=== PATIENT | female | born 1955 | race Caucasian/White ===

== ENCOUNTER 2018-02-24 09:33 | Outpatient (CLI) | payer BC ==
[2018-02-24 10:45] LABS: Hemoglobin 13.7 g/dL (12.0-16.0); Mean Corpuscular HGB CONC 33.5 g/dL (32.0-36.0); Mean Corpuscular Hemoglobin 28.5 pg (27.0-31.0); Mean Platelet Volume 7.1 fL (7.4-10.4); Platelet Count 192 thou/uL (130-400); RBC Distribution Width 12.7 % (11.5-14.5); Red Blood Cell (RBC) Count 4.82 mill/uL (4.20-5.40); White Blood Cell (WBC) Count 6.7 thou/uL (4.8-10.8)
[2018-02-24 10:51] LABS: PTT 33.4 SEC (22.9-36.1); Prothrombin Time 13.7 SEC (12.0-14.7)
[2018-02-24 11:05] LABS: ALT (SGPT) 26 U/L (8-55); AST (SGOT) 16 U/L (5-34); Albumin 4.3 g/dL (3.4-4.8); Alkaline Phosphatase 84 U/L (40-150); Anion Gap 9 mmol/L (10-20); BUN (Urea Nitrogen) 10 mg/dL (9.8-20.1); Bilirubin, Total 0.6 mg/dL (0.2-1.2); Calc. Creatinine Clearance 0 mL/min (70-130); Calcium 9.9 mg/dL (7.8-10.44); Carbon Dioxide 25 mmol/L (23-31); Chloride 109 mmol/L (98-107); Estimated GFR-MDRD 73; Globulin 2.6 g/dL (2.4-3.5); Glucose 167 mg/dL (80-115); Potassium 4.3 mmol/L (3.5-5.1); Protein, Total 6.9 g/dL (6.0-8.3); Sodium 139 mmol/L (136-145)
--- NOTE | 2018-02-24 16:45 | EKG ---
Test Reason : Blood Pressure : / mmHG Vent. Rate : 066 BPM Atrial Rate : 066 BPM P-R Int : 134 ms QRS Dur : 090 ms QT Int : 362 ms P-R-T Axes : -15 032 089 degrees QTc Int : 379 ms Normal sinus rhythm Nonspecific T wave abnormality Abnormal ECG Confirmed by ERICKA SAINZ ([id number]) on 02/24/2018 4:44:58 PM Referred By: MANAN Confirmed By:ERICKA SAINZ
== END 2018-02-24 09:34 | disposition home or self-care (01) ==
LOC: LABBT 09:33
PROVIDERS: ATTEND Internal Medicine Cardiovascular Disease
DX: Z01.818 Encounter for other preprocedural examination (principal); I25.10 Atherosclerotic heart disease of native coronary artery without angina pectoris
CPT/HCPCS: 80053; 85027; 85610; 85730; 93005; 93010

== ENCOUNTER 2018-02-27 05:47 | Day surgery (SDC) | payer BC ==
[2018-02-24 09:59] VITALS: BMI 31.2
[2018-02-27] MEDS ORDERED: Verapamil 5 MG/2 ML VIAL ONE (06:57)
[2018-02-27] MEDS ORDERED: Heparin 10,000 UNITS/1 ML VIAL ONE (06:57)
[2018-02-27] MEDS ORDERED: Nitroglycerin 100MG/250ML BOT 250 ML ONE (06:58)
[2018-02-27] MEDS ORDERED: Lidocaine 1% (PF) 30 ML VIAL ONE (07:04)
[2018-02-27] MEDS ORDERED: Midazolam HCl 2 mg/2 ml Vial ONE (08:16)
[2018-02-27] MEDS ORDERED: Fentanyl 100 MCG/2 ML VIAL ONE (08:16)
--- NOTE | 2018-02-28 04:30 | CON ---
DATE OF CONSULTATION: 02/27/2018 REQUESTING PHYSICIAN: Cr Abreu M.D. PRIMARY CARE PHYSICIAN: Soraya Hagan M.D. CHIEF COMPLAINT: Shortness of breath. HISTORY OF PRESENT ILLNESS: The patient is a 62-year-old diabetic woman with a family history of pre mature coronary artery disease who at about age 48 had a myocardial infarction. At that time, she un derwent stenting of her LAD and has done reasonably well since then. Manifestation of her [place], she de scribes it was that she bent over while taking a shower and became very dizzy and lightheaded. When her arrived, he commented that she looked pale as a ghost and took her to the hospital. She has had no recurrent symptoms even vaguely resembling that since then. However, for about the past y ear, she seems to be getting tired more easily and gets winded when exerting herself more easily. Th ere is not a distinct pattern to it, but in speaking with her , he feels like he has been able to notice a distinct change in her exercise tolerance. At a recent checkup, she volunteered this sh ortness of breath, which prompted stress testing, which showed a large area of apical ischemia. Card iac catheterization today demonstrated left dominant system with some modest circumflex system diseas e, but a subtotal lesion in her mid LAD. PAST MEDICAL AND SURGICAL HISTORY: Significant for coronary artery disease, hypertension, diabetes, and esophageal stricture was dilated about a year ago. About 4 years ago, she underwent segmental ma stectomy and radiation therapy to the left breast. HOME MEDICATIONS: Metoprolol succinate 50 mg a day, losartan 50 mg at bedtime, Januvia 50 mg a day, glipizide 10 mg b.i.d., Lipitor 40 mg at bedtime, and anastrozole one tablet a day. ALLERGIES: She denies any medical allergies, but describes an intolerance to METFORMIN causing diarr hea. SOCIAL HISTORY: She does not smoke. FAMILY HISTORY: Significant for her mother having undergone carotid endarterectomy and then underwen t coronary artery bypass grafting following a myocardial infarction. She describes her father as hav ing severe lung disease that led to heart problems. She had a brother who of an [place] at age 50. REVIEW OF SYSTEMS: Negative for any orthopnea or PND. Negative for any edema. Positive for some oc casional chest heaviness. Negative for any transient high speech, facial or extremity symptoms to land ggest TIAs. Negative for any claudication. PHYSICAL EXAMINATION: GENERAL: She is a moderately obese woman, in no distress. VITAL SIGNS: Height is 5 feet 5 inches, weight 192 pounds, heart rate is 80, blood pressure 124/60. HEENT: She has no xanthelasma. NECK: No JVD, no carotid bruits. CHEST: Clear to auscultation. CARDIOVASCULAR: She has regular rate and rhythm without any obvious murmur or gallop. SKIN: She has a well-healed surgical scar on the inner lower quadrant of her left breast with a very small amount of residual radiation burn type scarring. The remainder of the skin of her chest wall appears normal in color and texture. EXTREMITIES: She has palpable radial, dorsalis pedis, and posterior tibial pulses. No clubbing, cya nosis, or edema. NEUROLOGIC: Grossly nonfocal. LABORATORY DATA: Her white count is 6.7, hemoglobin 13.7, hematocrit 40.9, platelets 192,000. PT 13 .7, INR 1.0, PTT 33.4. Sodium 139, potassium 4.3, chloride 109, CO2 of 25, glucose 167, BUN 10, crea tinine 0.97, calcium 9.9, bilirubin 0.6, alkaline phosphatase 84, AST 16, ALT 26, protein 6.9, and al bumin 4.3. Her echocardiogram showed an LVEF of 60%. Her cardiac catheterization showed left domina nt system with proximal LAD stent and a subtotal lesion in the mid LAD with slow filling. Beyond maria r t, the LAD appears to be somewhat underfilled but goes up to the apex. She has modest lesion in the ostium of a large OM1 followed by a small OM2 and a large OM3. She has about 60%-70% lesion in the c ircumflex leading to the PDA, she is a nondominant right. IMPRESSION AND RECOMMENDATION: Very high-grade LAD disease with more modest disease in the obtuse ma rginal and the mid circumflex PDA while she may not fit into the category of a patient for whom surgi adore revascularization can clearly offer a survival advantage and she should be a fairly low-risk skye ent and would be far easier I think to successfully manage surgically than medically or percutaneousl y. Once she and her have had a chance to make arrangements for a time-off from work and some one to care for an elderly parent in their absence, we will arrange for coronary artery bypass grafti ng at mutual convenience.
== END 2018-02-27 14:06 | disposition home or self-care (01) ==
LOC: CCL 05:47
PROVIDERS: ATTEND Internal Medicine Cardiovascular Disease
PROC: 4A023N8 Measurement of Cardiac Sampling and Pressure, Bilateral, Percutaneous Approach (ICD-10-PCS; principal; 2018-02-27)
PROC: B2111ZZ Fluoroscopy of Multiple Coronary Arteries using Low Osmolar Contrast (ICD-10-PCS; principal; 2018-02-27)
DX: I25.10 Atherosclerotic heart disease of native coronary artery without angina pectoris (principal); I10 Essential (primary) hypertension; E78.5 Hyperlipidemia, unspecified; K21.9 Gastro-esophageal reflux disease without esophagitis; Z79.84 Long term (current) use of oral hypoglycemic drugs; Z79.899 Other long term (current) drug therapy
CPT/HCPCS: 36416; 85347; 93454; 99152; 99153; C1769; J1644; J2001; J2250; J3010

== ENCOUNTER 2018-03-06 15:30 | Inpatient (IN) | payer BC, MEDICARE ==
[2018-03-13] MEDS ORDERED: CEFAZOLIN/Water 2 GM/20 ML SYRINGE ONE (06:02)
[2018-03-13] MEDS ORDERED: Fentanyl 100 MCG/2 ML VIAL ONE ×3 (06:31→11:37)
[2018-03-13] MEDS ORDERED: Fentanyl 250 MCG/5 ML VIAL ONE (06:31)
[2018-03-13] MEDS ORDERED: Midazolam HCl 5 mg/5 ml Vial ONE (06:31)
[2018-03-13] MEDS ORDERED: Albumin 5% 0 ML ONE (06:33)
[2018-03-13] MEDS ORDERED: Heparin 5,000 UNITS/ML VIAL ONE ×2 (06:59→12:48)
[2018-03-13] MEDS ORDERED: Midazolam HCl 2 mg/2 ml Vial ONE ×3 (07:00→13:03)
[2018-03-13] MEDS ORDERED: Heparin 10,000 UNITS/1 ML VIAL 30,000 UNITS in Sodium Chloride 0.9% 1,000 ML FS SCH (07:00)
[2018-03-13] MEDS ORDERED: Rocuronium Bromide 50 MG/5 ML VIAL ONE ×2 (07:19→09:26)
[2018-03-13] MEDS ORDERED: Bisacodyl 5 MG TAB PO PRN (07:44)
[2018-03-13] MEDS ORDERED: Nitroglycerin 50 MG/250 ML BOT 250 ML IVPB PRN (07:44)
[2018-03-13] MEDS ORDERED: Hetastarch 6% 500 ML 500 ML IVPB PRN (07:44)
[2018-03-13] MEDS ORDERED: Guaifenesin DM 100-10/5 ML UDCUP PO PRN (07:44)
[2018-03-13] MEDS ORDERED: Ondansetron HCl/PF 4 MG/2 ML Vial IVP PRN (07:44)
[2018-03-13] MEDS ORDERED: Promethazine HCl 25 MG/ML VIAL IM PRN (07:44)
[2018-03-13] MEDS ORDERED: Bisacodyl 10 MG SUPP PR PRN (07:44)
[2018-03-13] MEDS ORDERED: Post-Op Insulin Drip Protocol IVPB ONE (07:44)
[2018-03-13] MEDS ORDERED: hydrALAZINE 20 MG/ML VIAL SLOW IVP PRN (07:44)
[2018-03-13] MEDS ORDERED: Potassium Chloride 20 MEQ/100 ML PREMIX BAG IVPB PRN (07:44)
[2018-03-13] MEDS ORDERED: Norepinephrine 8 MG/0.9% NS 250 ML IVPB PRN (07:44)
[2018-03-13] MEDS ORDERED: Mag-Al 1200 mg/1200 mg/30 ML UDCUP PO PRN (07:44)
[2018-03-13] MEDS ORDERED: Fentanyl 100 MCG/2 ML VIAL SLOW IVP PRN (07:44)
[2018-03-13] MEDS ORDERED: Mannitol 12.5 GM/50 ML ONE ×2 (08:41→12:48)
[2018-03-13] MEDS ORDERED: Dextrose 5% in Water 1,000 ML IV PRN (08:49)
[2018-03-13] MEDS ORDERED: Dextrose 50% Abboject 50 ML SYRINGE SLOW IVP PRN (08:49)
[2018-03-13] MEDS ORDERED: Insulin Regular 300 UNITS/3 ML VIAL ONE (10:47)
[2018-03-13] MEDS ORDERED: Sodium Bicarb 50 MEQ/50 ML Abboject 8.4% SYRINGE ONE ×2 (12:28→12:48)
[2018-03-13] MEDS ORDERED: Lidocaine 2% PF 100 mg/5 ml Syringe ONE (12:48)
[2018-03-13] MEDS ORDERED: Lidocaine 1% PF 5 ML VIAL ONE (12:48)
[2018-03-13] MEDS ORDERED: Heparin 30,000 units/30 ml VIAL ONE (12:48)
[2018-03-13] MEDS ORDERED: Nitroglycerin 50 MG/250 ML BOT ONE (12:48)
[2018-03-13] MEDS ORDERED: Protamine Sulfate 250 MG/25 ML VIAL ONE (12:48)
[2018-03-13] MEDS ORDERED: Papaverine 60 MG/2 ML VIAL ONE (12:48)
[2018-03-13] MEDS ORDERED: Calcium Chloride 1 GM/10 ML Abboject SYRINGE ONE (12:48)
[2018-03-13] MEDS ORDERED: Magnesium 5 GM/10 ML VIAL ONE (12:48)
[2018-03-13] MEDS ORDERED: PHENYLEPHRINE-NS 100 MCG/ML 10 ML SYRINGE ONE (12:48)
[2018-03-13] MEDS ORDERED: ePHEDrine/0.9% NaCl/PF SYRINGE 50 mg/10 ml ONE (12:48)
[2018-03-13] MEDS ORDERED: Aminocaproic Acid 5 GM/20 ML VIAL ONE (12:48)
[2018-03-13] MEDS ORDERED: PROPOFOL 200 MG/20 ML VIAL ONE (12:48)
[2018-03-13] MEDS ORDERED: Potassium Chloride 60 MEQ/30 ML VIAL ONE (12:48)
[2018-03-13] MEDS ORDERED: Cardioplegic Soln 1,000 ML BAG ONE (12:48)
[2018-03-13] MEDS: Anastrozole 1 MG TAB PO SCH (13:03)
[2018-03-13] MEDS: Aspirin 325 MG TAB PO SCH (13:04)
[2018-03-13 14:04] LABS: Actual Bicarbonate (HCO3a) 22.4 mEq/L (22-26); Base Excess (BEa) -2.5 mEq/L (0 (+/-) 2.5); CO2 Tension 38.8 mmHg (35.0-45.0); Calcium, Ionized 1.2 mmol/L (1.12-1.30); Hematocrit-ABG 28.2 % (36.0-47.0); Hemoglobin (Hb) 10.2 g/dL (12.0-16.0); O2 Tension (PaO2) 118.9 mmHg (80.0-100.0); Puncture Site ALINE; pH, Arterial 7.38 (7.35-7.45)
[2018-03-13 14:09] LABS: #Eosinphils 0.2 thou/uL (0.0-0.7); #Lymphocytes 2.4 thou/uL (1.20-3.40); #Monocytes 1.2 thou/uL (0.11-0.59); #Neutrophils 10.7 thou/uL (1.40-6.50); %Basophils 0.1 % (0.0-1.0); %Eosinophils 1.1 % (0.0-10.0); %Lymphocytes 16.5 % (21.0-51.0); %Monocytes 8.2 % (0.0-10.0); %Neutrophils 74.1 % (42.0-75.0); Hemoglobin 10.8 g/dL (12.0-16.0); Mean Corpuscular HGB CONC 34.1 g/dL (32.0-36.0); Mean Corpuscular Hemoglobin 28.8 pg (27.0-31.0); Mean Corpuscular Volume 84.6 fl (81.0-99.0); Mean Platelet Volume 6.9 fL (7.4-10.4); Platelet Count 139 thou/uL (130-400); RBC Distribution Width 12.7 % (11.5-14.5); Red Blood Cell (RBC) Count 3.74 mill/uL (4.20-5.40); White Blood Cell (WBC) Count 14.4 thou/uL (4.8-10.8)
--- NOTE | 2018-03-13 14:17 | RAD ---
SINGLE VIEW OF THE CHEST: COMPARISON: 03/06/18. HISTORY: Open heart surgery. FINDINGS: A single view of the chest shows an enlarged cardiomediastinal silhouette. The patient is status pos t sternotomy. There is an endotracheal tube with its tip between the clavicles. There is a left sub clavian central venous catheter with its tip in the superior vena cava. A left-sided chest and media stinal drains are seen. No pneumothorax is present. IMPRESSION: Appropriate position of lines and tubes status post sternotomy. POS: [facility]
[2018-03-13 14:20] LABS: INR-International Normal Ratio 1.5; PTT 33.2 SEC (22.9-36.1); Prothrombin Time 18.3 SEC (12.0-14.7)
[2018-03-13] MEDS: Ketorolac Tromethamine 30 MG/ML VIAL IVP SCH ×2 (14:22→18:13)
[2018-03-13] MEDS: Sodium Chloride 0.9% 1,000 ML IV SCH (14:25)
[2018-03-13 14:29] LABS: Anion Gap 10 mmol/L (10-20); BUN (Urea Nitrogen) 10 mg/dL (9.8-20.1); Calc. Creatinine Clearance 113 mL/min (70-130); Calcium 7.7 mg/dL (7.8-10.44); Carbon Dioxide 22 mmol/L (23-31); Chloride 115 mmol/L (98-107); Estimated GFR-MDRD 87; Glucose 170 mg/dL (80-115); Potassium 4.5 mmol/L (3.5-5.1); Sodium 142 mmol/L (136-145)
--- NOTE | 2018-03-13 16:01 | OP ---
DATE OF PROCEDURE: 03/13/2018 OPERATION PERFORMED: Coronary artery bypass grafting x3 with left internal mammary artery to the LAD and reverse greater saphenous vein graft from the aorta to the OM1 and from the aorta to the circumf sen PDA, left subclavian central line placement. PREOPERATIVE DIAGNOSIS: Coronary artery disease. POSTOPERATIVE DIAGNOSIS: Coronary artery disease. SURGEON: Homero Lo MD DIESEL ENGINE I PIPE FITTER: Jeremiah. ANESTHESIA: General endotracheal anesthesia. INDICATIONS: The patient is a 62-year-old diabetic woman with known coronary artery disease having u ndergone previous LAD stenting. She has recently redeveloped angina and she was found to have a subt otal stenosis of her LAD with slow filling in it. She had a left dominant system with more modest di sease at the ostium of the OM1 and in the circumflex leading to the PDA. She had good ventricular fu nction. She is now taken to the operating room for revascularization. FINDINGS: Pump time 98 minutes. Crossclamp time 46 minutes. The mammary was rather thin walled, bu t had excellent flow. The greater saphenous veins were of marginal size and quality with the vein fr om the right side being a little bit better than the left. The LAD was about a 1.5-2 mm vessel. The OM1 was about a 2 mm vessel and the PDA about 1.5 mm. NARRATIVE REPORT: After informed consent was obtained, the patient was taken to the operating room a nd placed in supine position on the operating table. PROCEDURE: After the induction of general anesthesia, the patient's left chest was prepped and drape d in sterile fashion. She was placed in Trendelenburg and a triple-lumen central line kit was used t o place a left subclavian central line by the Seldinger technique. All three ports easily aspirated and flushed and the line was secured to the skin with suture. The patient's torso, groins and lower extremities were prepped and draped in sterile fashion after doing ultrasonographic mapping of the meli jesus's left lower extremity veins. The vein was exposed at the knee and proved to be a rather small vessel, not amenable to endoscopic harvest. It was harvested up to the groin through a skin bridge technique and though acceptable in size and quality. It was somewhat small and it was opted to harve st additional vein from the right thigh which was a little bit better in size and quality. The harve st sites were closed in layers the subcutaneous and subcuticular Vicryl. Median sternotomy was perfo rmed and the left GRANT was mobilized as a pedicle from the level of the xiphoid to the level of the land bclavian vein through an extrapleural exposure. The patient was heparinized. The mammary was ligate d and divided distally. The mammary was somewhat spastic, but the spasm was well relieved by papaver ine solution though the mammary was slightly small and thin walled, it had excellent flow. Papaverin e solution was instilled intraluminally and the mammary bed was inspected for hemostasis. There were 2 rents in the pleura. One near the apex and one near the diaphragmatic surface that were repaired with suture, but did not prove to be adequately referable to avoid fluid draining into the chest. Th e mammary bed was inspected for hemostasis and the GRANT retractor was placed with a sternal retractor. The pericardium was opened and marsupialized. The aorta was palpated and was soft. A double surendra ntric pursestring of 2-0 Ethibond was placed in the ascending aorta just beyond the pericardial refle ction and a single pursestring was placed in the right atrial appendage. Aortic and venous cannulae were inserted and secured by the pursestrings. Cardiopulmonary bypass was instituted and the patient was allowed to cool. The heart was examined and the vessels to be bypassed were identified and the aortic crossclamp was applied and cardioplegia was administered through an aortic root needle while c ardioplegia was infusing. A longitudinal split was made in the pericardium anterior to the left phre hadley nerve through which the mammary pedicle can be passed. When arrest has been achieved, attention was turned to the PDA. The smaller vessel, the smaller caliber vein from the left thigh was used to graft it. The PDA was opened with a Pierce blade and Escobar scissors near where it emerged from e AV groove. A saphenous vein was anastomosed the area and the side with running Prolene suture and tested by flushing cold cardioplegic down the graft. The vein from the right thigh was used to graft the OM1 in a similar fashion. The LAD was then opened and the mammary was anastomosed to it with ru nning 7-0 Prolene, and the mammary pedicle tacked to the epicardium. A Doppler was used to confirm g ood flow through the mammary into the LAD. The aortic crossclamp was replaced with a partial occludi ng clamp. An aortotomy was made in the ascending aorta with a scalpel and punch incorporating the ro ot needle site for one of the aortotomies. The PDA graft was brought along the right side of the hea rt and anastomosed to the more proximal aortotomy. The OM1 graft was anastomosed to the more distal aortotomy. The vein grafts were occluded and the partial occluding clamp removed. The vein grafts w ere deaired. The anastomoses were inspected for hemostasis. A left pleural drain was brought out th rough a separate incision and secured with suture as well as a posterior pericardial drain. Right at rial and right ventricular temporary epicardial pacing wires were placed. The patient was then easil y weaned from cardiopulmonary bypass. Aortic and venous cannulae were removed and their pursestring secured. Protamine was administered. When hemostasis was adequate, an anterior mediastinal drain wa s placed and the pericardium was easily closed over running Vicryl. The sternum was reapproximated w ith #7 stainless steel wires. Fascia was closed over the wires with heavy Vicryl. Subcutaneous tiss ue was irrigated and reapproximated and the skin was closed with Vicryl subcuticular stitch. The wou nds were dressed. The patient was taken to the intensive care unit in stable condition.
--- NOTE | 2018-03-13 16:36 | CON ---
DATE OF CONSULTATION: 03/13/2018 SERVICE: Pulmonary Medicine. REASON FOR CONSULTATION: ICU patient. HISTORY OF PRESENT ILLNESS: The patient is a 62-year-old white female with past medical history significant for coronary artery disease and diabetes. She underwent a cardiac catheterization in the outpatient setting and was found to have a lesion in her LAD that underwent stenting. She did well initially, but then become lightheaded and dizzy. Stress testing was performed which showed a large area of apical ischemia. Ultimately, repeat cardiac catheterization demonstrated some coronary artery disease which was operable. As such, she was set up for this in the outpatient setting. Prior to this procedure, the patient was in her usual state of health by history. She cannot provide any additional elements of the history because she currently under the influence of sedating medications. PAST MEDICAL HISTORY: 1. Coronary artery disease. 2. Hypertension. 3. Dyslipidemia. 4. Type 2 diabetes mellitus. 5. History of breast cancer. PAST SURGICAL HISTORY: 1. Coronary artery bypass graft, postop day 0. 2. History of percutaneous coronary intervention. 3. Partial mastectomy with subsequent radiation therapy to left breast. 4. EGD with dilation of esophageal stricture. ALLERGIES: No known drug allergies. MEDICATIONS: List of her inpatient medications were reviewed. No specific updates were made at this time. SOCIAL HISTORY: Negative for tobacco. I do not know about alcohol or illicit drug use. FAMILY HISTORY: Noncontributory. REVIEW OF SYSTEMS: This cannot be obtained as the patient is currently intubated and sedated. PHYSICAL EXAMINATION: VITAL SIGNS: Afebrile. Pulse 86, blood pressure 96/53, respirations 12, saturation 99% on 27% FiO2 and a PEEP of 5. GENERAL: Patient is intubated and sedated. She is nodding yes or no, but without stimulation, she will drift back off to sleep within 3 seconds. She is moving all 4 extremities. HEENT: Normocephalic, atraumatic. Sclerae are white, conjunctivae pink. Oral mucosa is moist without lesions. Endotracheal tube is in good position. HEART: Normal rate, regular. ABDOMEN: Soft, nontender, nondistended. Bowel sounds are positive. MUSCULOSKELETAL: No cyanosis or clubbing. No pitting in the bilateral lower extremities. NEUROLOGIC: Grossly nonfocal. LABORATORY DATA: WBC 14.4, hemoglobin 10.8, and platelets 138,000. This is post-CABG. INR 1.5. A pH 7.38, pCO2 38.3, and pO2 118. Basic metabolic profile is unremarkable except for chloride of 115, bicarbonate 22 after her case. Calcium 7.7. IMAGING: Chest x-ray demonstrates endotracheal tube is in good position. There is a left subclavian central venous catheter in good position. There is a left chest tube and two mediastinal drains that are in good position. There is pleural parenchymal change in the left lung, and/or high riding left diaphragm with low lung volumes present. There is possible right mid lung infiltrate. Atelectasis is favored; however. ASSESSMENT: 1. Acute hypoxic respiratory failure. 2. Coronary artery disease, status post coronary artery bypass graft, postop day #0. 3. Morbid obesity. PLAN: We will continue her postop supportive care. When the patient meets criteria, extubation will be considered after spontaneous breathing trial. CRITICAL CARE TIME: 30 minutes. GLENND
[2018-03-13 18:35] LABS: Actual Bicarbonate (HCO3a) 21.4 mEq/L (22-26); Base Excess (BEa) -2.6 mEq/L (0 (+/-) 2.5); CO2 Tension 34.2 mmHg (35.0-45.0); Hematocrit-ABG 28.3 % (36.0-47.0); Hemoglobin (Hb) 10.1 g/dL (12.0-16.0); O2 Tension (PaO2) 92.1 mmHg (80.0-100.0); pH, Arterial 7.41 (7.35-7.45)
[2018-03-13 18:37] LABS: Calcium, Ionized 1.2 mmol/L (1.12-1.30); Puncture Site LINE
[2018-03-13 19:59] LABS: Hemoglobin 10.4 g/dL (12.0-16.0)
[2018-03-13 20:12] LABS: Potassium 3.8 mmol/L (3.5-5.1)
[2018-03-13] MEDS ORDERED: Prevnar 13-Val Conj/PF 0.5 ML SYRINGE IM ONE (21:00)
[2018-03-13] MEDS ORDERED: Famotidine 40 MG/4 ML VIAL IVPB SCH (21:00)
[2018-03-13] MEDS ORDERED: Famotidine/PF 20 mg/2ml Vial SLOW IVP SCH (21:15)
[2018-03-13] MEDS: Atorvastatin Calcium 40 MG TAB PO SCH (21:57)
[2018-03-13] MEDS: Fentanyl 100 MCG/2 ML VIAL SLOW IVP PRN (22:06)
[2018-03-14] MEDS: Ketorolac Tromethamine 30 MG/ML VIAL IVP SCH ×2 (00:11→05:04)
[2018-03-14] MEDS: Sodium Chloride 0.9% 1,000 ML IV SCH (00:12)
[2018-03-14] MEDS: Fentanyl 100 MCG/2 ML VIAL SLOW IVP PRN (01:42)
[2018-03-14 04:31] LABS: Anion Gap 8 mmol/L (10-20); BUN (Urea Nitrogen) 10 mg/dL (9.8-20.1); Calc. Creatinine Clearance 127 mL/min (70-130); Calcium 7.9 mg/dL (7.8-10.44); Carbon Dioxide 23 mmol/L (23-31); Chloride 118 mmol/L (98-107); Estimated GFR-MDRD Greater than 90; Glucose 114 mg/dL (80-115); Potassium 4.2 mmol/L (3.5-5.1); Sodium 145 mmol/L (136-145)
[2018-03-14] MEDS: HYDROcodone/Acetaminophen 5/325 mg Tablet PO PRN ×5 (04:33→21:22)
[2018-03-14 05:06] LABS: #Basophils 0.1 thou/uL (0.0-0.2); #Lymphocytes 0.7 thou/uL (1.20-3.40); #Monocytes 0.9 thou/uL (0.11-0.59); #Neutrophils 7.3 thou/uL (1.40-6.50); %Basophils 1.1 % (0.0-1.0); %Eosinophils 0.1 % (0.0-10.0); %Lymphocytes 7.5 % (21.0-51.0); %Monocytes 9.7 % (0.0-10.0); %Neutrophils 81.6 % (42.0-75.0); Mean Corpuscular HGB CONC 33.8 g/dL (32.0-36.0); Mean Corpuscular Hemoglobin 28.9 pg (27.0-31.0); Mean Corpuscular Volume 85.6 fl (81.0-99.0); Mean Platelet Volume 7.4 fL (7.4-10.4); Platelet Count 119 thou/uL (130-400); RBC Distribution Width 12.8 % (11.5-14.5); Red Blood Cell (RBC) Count 3.11 mill/uL (4.20-5.40)
[2018-03-14 05:07] LABS: PLT Morphology Comment Appears Decreased
[2018-03-14] MEDS ORDERED: Insulin Glargine 25 UNITS in Pre-Filled Syringe 1 EACH SC SCH (08:30)
--- NOTE | 2018-03-14 08:35 | RAD ---
SEMI UPRIGHT PORTABLE CHEST ONE VIEW: History: 62-year-old female with post op open heart. Comparison: 03-13-18 FINDINGS/IMPRESSION: Left chest tube is in place and left subclavian catheter. Patchy mostly linear type parenchymal luna es in the mid lung zones and some left pleural effusion. There is some increased lucency in the right apex which appears somewhat more prominent than on the prior study. Conceivably this could represent a small apical pneumothorax although it may just be technique. If there is any clinical reason for t he patient to potentially have a right sided pneumothorax then I would suggest a short term follow up study. POS: [facility]
[2018-03-14] MEDS: Metoprolol Tartrate 25 MG TAB PO SCH ×2 (08:58→21:07)
[2018-03-14] MEDS: Aspirin 325 MG TAB PO SCH (08:59)
[2018-03-14] MEDS ORDERED: Famotidine 40 MG/4 ML VIAL SLOW IVP SCH (09:00)
[2018-03-14] MEDS: Anastrozole 1 MG TAB PO SCH (09:02)
[2018-03-14] MEDS ORDERED: Bisacodyl 10 MG SUPP PR PRN (09:51)
[2018-03-14] MEDS ORDERED: Nitroglycerin 0.4 MG TAB (25 Tab Bottle) SL PRN (09:51)
[2018-03-14] MEDS ORDERED: Zolpidem Tartrate 5 MG TAB PO PRN (09:51)
[2018-03-14] MEDS ORDERED: Mineral Oil ENEMA PR PRN (09:51)
[2018-03-14] MEDS ORDERED: Guaifenesin DM 100-10/5 ML UDCUP PO PRN (09:51)
[2018-03-14] MEDS ORDERED: Mag-Al 1200 mg/1200 mg/30 ML UDCUP PO PRN (09:51)
[2018-03-14] MEDS ORDERED: Artificial Tear Sol 15 ML BOT EA EYE PRN (09:51)
[2018-03-14] MEDS ORDERED: diphenhydrAMINE 25 MG CAP PO PRN (09:51)
[2018-03-14] MEDS ORDERED: Famotidine 20 MG TAB PO SCH (10:15)
--- NOTE | 2018-03-14 10:29 | PRG ---
DATE OF SERVICE: 03/14/2018 SERVICE: Pulmonary Medicine. INTERVAL HISTORY: The patient is doing poorly from a respiratory standpoint. She has severe chest d iscomfort. She is referred diaphragm pain to her left shoulder blade. She also has some neck pain a nd is having trouble moving her neck from right to left. The neck pain, I think is chronic. The oth er stuff seems to be subacute associated with her chest tubes. She denies any current nausea or vomi ting. She is not coughing very hard and has been previously avoiding taking big breaths. PHYSICAL EXAMINATION: VITAL SIGNS: Afebrile, pulse 104, blood pressure 123/75, respirations 18, and saturation 99% on room air. GENERAL: The patient is awake and alert, in no apparent distress. LUNGS: Reduced air entry. Crackles are present. No prolonged expiratory phase or wheezing is appre ciated. HEART: Normal rate and regular. ABDOMEN: Soft, nontender, nondistended. Bowel sounds are positive. MUSCULOSKELETAL: No cyanosis or clubbing. No pitting in the bilateral lower extremities. NEUROLOGIC: Grossly nonfocal. LABORATORY DATA: WBC 9.0, hemoglobin 9.0, and platelets 119,000. Basic metabolic profile is complet asmita unremarkable. Her chloride is 118 and gently up trending, sodium 145. Glucose is essentially st able at 136. IMAGING DATA: Chest x-ray demonstrates low lung volumes with accentuated interstitial markings. Jordin t being said, plate of atelectasis is apparent in the left midlung zone and left lower lobe. There i s likely a small pleural effusion on the left side. There is a thoracostomy drain which is along mar gin of the left lung. There is a left-sided subclavian central venous catheter which terminates in g ood position. Sternotomy wires are noted. ASSESSMENT: 1. Acute hypoxic respiratory failure, improving. 2. Coronary artery disease, status post coronary artery bypass graft, postoperative day #1. 3. Morbid obesity. 4. Atelectasis in the left lung. DISCUSSION AND PLAN: Supportive cares will be continued. Pulmonary or Critical Care will continue t o follow along until she more clearly turns the corner. The chest tubes are putting out small amount of sanguineous fluid. I have encouraged her to take some deep breaths moving forward. In her curre nt stay, she is at high risk of developing progressive respiratory failure and pneumonia.
[2018-03-14] MEDS: Insulin Regular 300 UNITS/3 ML VIAL SC PRN (11:15)
[2018-03-14] MEDS: Furosemide 40 MG/4 ML VIAL SLOW IVP SCH (13:04)
[2018-03-14] MEDS ORDERED: Sodium Chloride 0.9% 30 ML ONE (20:03)
[2018-03-14] MEDS: Atorvastatin Calcium 40 MG TAB PO SCH (21:07)
[2018-03-14] MEDS: Famotidine 20 MG TAB PO SCH (21:07)
[2018-03-15] MEDS: HYDROcodone/Acetaminophen 5/325 mg Tablet PO PRN ×4 (01:33→18:18)
[2018-03-15 05:25] LABS: Anion Gap 8 mmol/L (10-20); BUN (Urea Nitrogen) 14 mg/dL (9.8-20.1); Calc. Creatinine Clearance 113 mL/min (70-130); Calcium 8.2 mg/dL (7.8-10.44); Carbon Dioxide 21 mmol/L (23-31); Chloride 112 mmol/L (98-107); Estimated GFR-MDRD 89; Glucose 137 mg/dL (80-115); Sodium 137 mmol/L (136-145)
[2018-03-15 05:33] LABS: #Eosinphils 0.1 thou/uL (0.0-0.7); #Lymphocytes 2.2 thou/uL (1.20-3.40); #Monocytes 0.8 thou/uL (0.11-0.59); #Neutrophils 8.8 thou/uL (1.40-6.50); %Basophils 0.1 % (0.0-1.0); %Eosinophils 1.1 % (0.0-10.0); %Lymphocytes 18.5 % (21.0-51.0); %Monocytes 6.9 % (0.0-10.0); %Neutrophils 73.5 % (42.0-75.0); Hemoglobin 9.1 g/dL (12.0-16.0); Mean Corpuscular HGB CONC 33.9 g/dL (32.0-36.0); Mean Corpuscular Volume 85.5 fl (81.0-99.0); Mean Platelet Volume 7.6 fL (7.4-10.4); PLT Morphology Comment Appears Decreased; Platelet Count 98 thou/uL (130-400); RBC Distribution Width 12.8 % (11.5-14.5); RBC Morphology Normal; Red Blood Cell (RBC) Count 3.15 mill/uL (4.20-5.40)
[2018-03-15] MEDS ORDERED: Sodium Chloride 0.9% 10 ML ONE (05:35)
[2018-03-15] MEDS: Furosemide 40 MG/4 ML VIAL SLOW IVP SCH (06:30)
[2018-03-15] MEDS: Famotidine 20 MG TAB PO SCH ×2 (08:12→21:03)
[2018-03-15] MEDS: Metoprolol Tartrate 25 MG TAB PO SCH ×2 (08:12→21:02)
[2018-03-15] MEDS: Anastrozole 1 MG TAB PO SCH (08:12)
[2018-03-15] MEDS: Aspirin 325 mg Enteric Coated Tablet PO SCH (08:13)
--- NOTE | 2018-03-15 08:49 | RAD ---
ONE VIEW CHEST: HISTORY: Status post open heart surgery. COMPARISON: 03/14/18. FINDINGS: Redemonstration of a left-sided central venous catheter, left-sided chest tube, and mediastinal drain age catheters. Sternotomy wires are identified. Persistent parenchymal changes of the lung bases. IMPRESSION: Findings compatible with recent post open heart surgery. POS: [facility]
[2018-03-15] MEDS ORDERED: Sodium Chloride 0.9% 30 ML ONE (20:33)
[2018-03-15] MEDS: Atorvastatin Calcium 40 MG TAB PO SCH (21:02)
--- NOTE | 2018-03-15 21:05 | PRG ---
DATE OF SERVICE: 03/15/2018 SUBJECTIVE: Ms. Alvarado has no complaints. She is at the bedside. She has been ambulating without di fficulty with minimal dyspnea. OBJECTIVE: VTAL SIGNS: She is afebrile, heart rate is 77, respiratory rate 16, oximetry is 96 on 2 liters, bloo d pressure 152/78. LUNGS: Clear. HEART: Regular rhythm. ABDOMEN: Soft. EXTREMITIES: Without asymmetry. LABORATORY DATA: White count 12, hemoglobin 9.1, platelets 98,000. Sodium 137, potassium 4.1, chloride 112, bicarbonate 21, BUN 14, creatinine 0.6. IMPRESSION: Status post coronary bypass grafting. Chest radiograph today still showed a chest tube in the left in her mediastinal tubes. There are no infiltrates. IMPRESSION: 1. Thrombocytopenia most likely secondary to recent surgery. 2. Mild hyperchloremia, most likely secondary to IV fluids, doubt she has renal tubular acidosis. She appears to be clinically stable at this point in time. Other issues include hypertension, lipid disorder, diabetes, past history of breast cancer with partial mastectomy, radiation to her left tee st. She also has a history of reflux with dilation. She overall appears to be stable and appears to be very motivated to get out of here and also getting enrolled in cardiac rehabilitation. She reshmakyra ernesto would do well in outpatient cardiac rehabilitation in my opinion. We will continue to follow.
[2018-03-16] MEDS: HYDROcodone/Acetaminophen 5/325 mg Tablet PO PRN ×4 (00:23→20:19)
[2018-03-16] MEDS ORDERED: Sodium Chloride 0.9% 30 ML ONE (03:50)
[2018-03-16] MEDS: Diltiazem HCl 125 MG, Admixture Fee 1 EACH in Sodium Chloride 0.9% 100 ML IVPB SCH ×3 (04:09→20:21)
[2018-03-16 05:00] LABS: #Eosinphils 0.2 thou/uL (0.0-0.7); #Lymphocytes 1.6 thou/uL (1.20-3.40); #Monocytes 0.6 thou/uL (0.11-0.59); #Neutrophils 7.4 thou/uL (1.40-6.50); %Basophils 0.2 % (0.0-1.0); %Eosinophils 2.1 % (0.0-10.0); %Monocytes 6.2 % (0.0-10.0); %Neutrophils 75.5 % (42.0-75.0); Hemoglobin 9.1 g/dL (12.0-16.0); Mean Corpuscular HGB CONC 33.4 g/dL (32.0-36.0); Mean Corpuscular Hemoglobin 28.5 pg (27.0-31.0); Mean Corpuscular Volume 85.2 fl (81.0-99.0); Mean Platelet Volume 7.3 fL (7.4-10.4); Platelet Count 132 thou/uL (130-400); RBC Distribution Width 12.7 % (11.5-14.5); Red Blood Cell (RBC) Count 3.19 mill/uL (4.20-5.40); White Blood Cell (WBC) Count 9.8 thou/uL (4.8-10.8)
[2018-03-16 05:12] LABS: Anion Gap 10 mmol/L (10-20); BUN (Urea Nitrogen) 12 mg/dL (9.8-20.1); Calc. Creatinine Clearance 113 mL/min (70-130); Calcium 8.6 mg/dL (7.8-10.44); Carbon Dioxide 25 mmol/L (23-31); Chloride 104 mmol/L (98-107); Estimated GFR-MDRD 89; Glucose 156 mg/dL (80-115); Sodium 135 mmol/L (136-145)
[2018-03-16] MEDS ORDERED: Metoprolol Tartrate 5 MG/5 ML VIAL IVP PRN (07:57)
--- NOTE | 2018-03-16 08:10 | PDOC.EVN ---
Event Note - Event Note Event Note: Notified by nursing staff patient sustaining AFib c/ RVR, rate 150s-170s. Into room, patient awake, sitting in chair at bedside. Denies chest pain, shortness of breath, RR even/unlabored, no acute distress, O2 in place. Rate rapid, irregularly irregular. Cardizem gtt @ 15mg/hr, BP 115/75. Stat orders placed for metoprolol 5mg IVP now (MRP x1 in 15 min for HR sustaining >125), amiodarone 400mg PO now & BID.
[2018-03-16] MEDS: Amiodarone 200 MG TAB PO SCH ×2 (08:47→20:20)
[2018-03-16] MEDS: Famotidine 20 MG TAB PO SCH ×2 (08:48→20:20)
[2018-03-16] MEDS: Aspirin 325 mg Enteric Coated Tablet PO SCH (08:48)
[2018-03-16] MEDS: Anastrozole 1 MG TAB PO SCH (08:48)
[2018-03-16] MEDS: Metoprolol Tartrate 25 MG TAB PO SCH ×2 (10:20→20:20)
[2018-03-16] MEDS: Insulin Regular 300 UNITS/3 ML VIAL SC PRN ×3 (10:20→18:33)
--- NOTE | 2018-03-16 13:34 | RAD ---
PORTABLE AP CHEST XRAY: DATE: 03/16/18. HISTORY: Post open heart surgery. COMPARISON: 03/15/18. FINDINGS: Left subclavian central venous catheter and left-sided thoracostomy tube remain in place and unchange d in position. Probable mediastinal drain is also noted in place. Postsurgical changes related to C ABG are again present. Bibasilar linear and slight patchy densities are seen in each lung base proba ernesto related to atelectasis. There has been no significant interval change when compared to the prior exam. IMPRESSION: 1. Stable postoperative changes with lines and tubes stable in position. No obvious pneumothorax is seen. 2. Findings likely related to bibasilar atelectasis. POS: [facility]
--- NOTE | 2018-03-16 13:36 | PRG ---
DATE OF SERVICE: 03/16/2018 SUBJECTIVE: Ms. Alvarado went into atrial fibrillation this morning. When I saw her this morning, she had heart rate of 150. She is on 15 mg Cardizem. OBJECTIVE: LUNGS: Remarkable for fine crackles at her bases. No wheezes. HEART: Regular rhythm. ABDOMEN: Soft. LABORATORY DATA: White count 9.8, hemoglobin 9.1, platelets 132. Sodium 135, potassium 4, chloride 104, bicarbonate 25, BUN 12, creatinine 0.67. She was started on amiodarone at 9:00 by mouth. Heart rates in the 80s now. Overall, she appears to be stable after coronary bypass grafting. Not surprisingly, she has had postoperative atrial fibril lation. She appears to be clinically stable overall.
[2018-03-16] MEDS: Bisacodyl 5 MG TAB PO PRN (13:53)
--- NOTE | 2018-03-16 14:11 | CON ---
DATE OF CONSULTATION: 03/16/2018 REASON FOR CONSULTATION: Postoperative status atrial fibrillation with a rapid rate. HISTORY OF PRESENT ILLNESS: Ms. Alvarado is a very pleasant 62-year-old woman. She recently underwent catheterization and was found to have multivessel coronary artery disease, see her primary cardiologi st is Dr. Abreu. On 03/13/2018, she underwent bypass surgery successfully with internal mammary to the LAD, vein graft to OM1 and the posterior descending artery. The patient has done well up until l ast night, developed atrial fibrillation with extremely rapid ventricular response, rate of 150-170, the rate remained rapid despite intravenous diltiazem. Ultimately, she was given intravenous beta-bl ocker as well as the diltiazem and finally converted to sinus rhythm. The patient did have prolonged tachycardia. The patient was also given a single dose of amiodarone. She is feeling much better now, but states "it felt like an earthquake when it was happening." PAST MEDICAL HISTORY: 1. Recently diagnosed coronary artery disease. 2. History of percutaneous coronary intervention. 3. Previous mastectomies subsequent radiation therapy. MEDICATIONS: The patient was on low dose beta-blockers when this occurred that been adjusted as ment ioned above. ALLERGIES: None known. REVIEW OF SYSTEMS: Constitutional: She feels much better now. Vision: No changes. Hearing: No c hanges. Pulmonary: No cough or wheezing. Gastrointestinal: No nausea, vomiting, or diarrhea. Ski n: No rashes. Neurologic: No unilateral weakness or numbness. Psychiatric: No unusual depression or anxiety. Hematologic: No unusual bruising. Genitourinary: No burning with urination. PHYSICAL EXAMINATION: GENERAL: This is a pleasant woman sitting up in the chair, feels better. VITAL SIGNS: Blood pressure 142/86, pulse 80 it was 150 earlier. HEENT: Eyes: Sclerae nonicteric. Mouth: Mucous membranes moist. NECK: Supple, no lymphadenopathy. LUNGS: Clear. No wheezing, rales or rhonchi. CARDIAC: Normal S1, normal S2. There is no murmur, rub or gallop now. ABDOMEN: Soft, nontender. EXTREMITIES: Warm and dry. No clubbing, cyanosis or edema. PERTINENT LABORATORY AND X-RAY FINDINGS: The hemoglobin is 9.1, potassium is 4.0, glucose is 158. ASSESSMENT: 1. Status post bypass surgery. 2. Paroxysmal atrial fibrillation with a rapid rate, now maintaining sinus rhythm. PLAN: 1. We started her on oral amiodarone. 2. She is on intravenous diltiazem. 3. P.r.n. beta-blockers. 4. Oral beta-blockers. I discussed this with the patient. Prognosis is favorable. In view of the very rapid rates, which she did not tolerate well amiodarone orally was started probably use in a antonio y short course.
[2018-03-16] MEDS: Atorvastatin Calcium 40 MG TAB PO SCH (20:20)
[2018-03-17] MEDS: HYDROcodone/Acetaminophen 5/325 mg Tablet PO PRN ×4 (01:43→21:23)
[2018-03-17] MEDS: Diltiazem HCl 125 MG, Admixture Fee 1 EACH in Sodium Chloride 0.9% 100 ML IVPB SCH ×2 (04:30→14:15)
[2018-03-17 05:26] LABS: Anion Gap 11 mmol/L (10-20); BUN (Urea Nitrogen) 14 mg/dL (9.8-20.1); Calc. Creatinine Clearance 119 mL/min (70-130); Calcium 8.8 mg/dL (7.8-10.44); Carbon Dioxide 26 mmol/L (23-31); Chloride 102 mmol/L (98-107); Estimated GFR-MDRD Greater than 90; Glucose 147 mg/dL (80-115); Potassium 3.6 mmol/L (3.5-5.1); Sodium 135 mmol/L (136-145)
[2018-03-17] MEDS: Bisacodyl 5 MG TAB PO PRN (05:32)
--- NOTE | 2018-03-17 09:30 | RAD ---
PORTABLE CHEST; Date: 03/17/18 HISTORY: Postop sternotomy. Follow-up chest tube removal. COMPARISON: 03/16/18. FINDINGS/IMPRESSION: Left chest tube has been removed. Central line remains in position. No evidence of significant pneumo thorax. Mild cardiomegaly with postop sternotomy change. Atelectatic changes in the bases are less pr ominent today. No evidence of acute interval change. POS: [facility]
[2018-03-17] MEDS: Famotidine 20 MG TAB PO SCH ×2 (09:53→21:24)
[2018-03-17] MEDS: Metoprolol Tartrate 25 MG TAB PO SCH ×2 (09:53→21:25)
[2018-03-17] MEDS: Aspirin 325 mg Enteric Coated Tablet PO SCH (09:53)
[2018-03-17] MEDS: Anastrozole 1 MG TAB PO SCH (09:53)
[2018-03-17] MEDS: Amiodarone 200 MG TAB PO SCH (09:53)
[2018-03-17] MEDS: Insulin Regular 300 UNITS/3 ML VIAL SC PRN ×3 (09:53→21:46)
[2018-03-17 10:46] LABS: #Eosinphils 0.2 thou/uL (0.0-0.7); #Lymphocytes 1.6 thou/uL (1.20-3.40); #Monocytes 0.7 thou/uL (0.11-0.59); %Basophils 0.3 % (0.0-1.0); %Eosinophils 1.9 % (0.0-10.0); %Lymphocytes 16.6 % (21.0-51.0); %Monocytes 7.2 % (0.0-10.0); Hemoglobin 9.2 g/dL (12.0-16.0); Mean Corpuscular Volume 85.4 fl (81.0-99.0); Platelet Count 195 thou/uL (130-400); RBC Distribution Width 12.8 % (11.5-14.5); Red Blood Cell (RBC) Count 3.18 mill/uL (4.20-5.40); White Blood Cell (WBC) Count 9.4 thou/uL (4.8-10.8)
--- NOTE | 2018-03-17 15:02 | PRG ---
DATE OF SERVICE: 03/17/2018 SERVICE: Pulmonary Medicine. INTERVAL HISTORY: The patient is working well with physical therapy. She denies any current chest pain, nausea, vomiting, fevers, or chills. She is otherwise returning to her usual state of health. Chest tubes were removed this morning, and she feels much improved. She is coughing up old looking dark brown/green sputum. PHYSICAL EXAMINATION: VITAL SIGNS: Afebrile, pulse 95, blood pressure 128/60, respirations 20, and saturation 96% on 3 liters nasal cannula. GENERAL: The patient is awake, alert, in no apparent distress. LUNGS: Rhonchi are present. There is no prolonged expiratory phase or wheezing. HEART: Normal rate, regular. ABDOMEN: Soft, nontender, nondistended. Bowel sounds are positive. MUSCULOSKELETAL: No cyanosis or clubbing. There is 2+ pitting in the bilateral lower extremities. NEUROLOGIC: Grossly nonfocal. LABORATORY DATA: WBC 9.4, hemoglobin 9.2, platelets 195,000 and improving nicely. Basic metabolic profile is completely unremarkable with creatinine of 0.64. Blood sugars ranged from 152-186 IMAGING DATA: Chest x-ray demonstrates interval removal of the left chest tube. Central lines in good position. Bilateral lower lobe atelectasis is still evident, although slightly improved. There is fluid in the right fissure. ASSESSMENT: 1. Acute hypoxic respiratory failure, resolving. 2. Coronary artery disease, status post coronary artery bypass graft, postoperative day #4. 3. Morbid obesity. 4. Atelectasis of the bilateral lower lobes, improving. 5. Atrial fibrillation with rapid ventricular response, currently rate controlled. PLAN: We will continue her mobilization efforts. I will diurese the patient until she returns to euvolemia. Pulmonary Critical Care will continue to follow along for the time being. Oxygen will be weaned as tolerated. MTDD
[2018-03-17] MEDS ORDERED: Furosemide 40 MG/4 ML VIAL SLOW IVP SCH (15:15)
[2018-03-17] MEDS ORDERED: Potassium Chloride 20 MEQ TAB PO SCH (15:15)
--- NOTE | 2018-03-17 16:26 | PDOC.CTH ---
Cardiology Progress Note - Subjective She is doing well. She is worried as her had to go to the ER for chest pain but was discharged home. She had a small BM today and is passing gas. She is walking with PT without issues. - Objective Vital Signs Temp Pulse Pulse Pulse Resp BP BP 03/17/18 14:30 94 99 142/73 H 135/72 03/17/18 12:00 84 18 03/17/18 11:41 87 87 143/86 H 146/80 H 03/17/18 08:10 98.2 F 95 20 03/17/18 08:00 98.2 F 95 20 03/17/18 04:46 98.2 F 94 20 BP Pulse Ox Pulse Ox Pulse Ox 03/17/18 14:30 97 96 03/17/18 12:00 146/80 H 97 03/17/18 11:41 97 98 03/17/18 08:10 96 03/17/18 08:00 128/60 96 03/17/18 04:46 118/59 L 94 L Admit Weight 188 lb Weight 186 lb 4.8 oz 03/16/18 03/17/18 03/18/18 06:59 06:59 06:59 Intake Total 662 820 Output Total 2825 945 Balance -2163 -125 - Physical Examination General/Neuro: alert & oriented x3, NAD Neck: no JVD present Lungs: CTA, unlabored respirations Heart: RRR Abdomen: NT/ND Extremities: + edema B (1+) - Telemetry Telemetry Rhythm: NSR - Labs Result Diagrams: 03/17/18 10:40 03/17/18 04:53 - Assessment/Plan 1. S/P CABG 2. CAD. 3. Post op afib, now in sinus. PLAN: - Continue amiodarone load. - Aspirin and statin for life. - On BB, will start low dose ARB. - Increase PT as tolerated. - Continue IV lasix.
[2018-03-17] MEDS: Amiodarone HCl 450 MG, Admixture Fee 1 EACH in Dextrose 5% in Water 250 ML IVPB SCH (18:20)
[2018-03-17 18:55] LABS: ALT (SGPT) 16 U/L (8-55); AST (SGOT) 13 U/L (5-34); Albumin 3.4 g/dL (3.4-4.8); Alkaline Phosphatase 77 U/L (40-150); Bilirubin, Direct 0.3 mg/dL (0.1-0.3); Bilirubin, Total 0.5 mg/dL (0.2-1.2); Protein, Total 5.9 g/dL (6.0-8.3)
[2018-03-17] MEDS: Atorvastatin Calcium 40 MG TAB PO SCH (21:25)
[2018-03-18] MEDS: HYDROcodone/Acetaminophen 5/325 mg Tablet PO PRN ×5 (02:43→22:10)
[2018-03-18] MEDS: Amiodarone HCl 450 MG, Admixture Fee 1 EACH in Dextrose 5% in Water 250 ML IVPB SCH ×2 (03:28→17:27)
[2018-03-18 07:07] LABS: Anion Gap 10 mmol/L (10-20); BUN (Urea Nitrogen) 12 mg/dL (9.8-20.1); Calc. Creatinine Clearance 117 mL/min (70-130); Calcium 8.6 mg/dL (7.8-10.44); Carbon Dioxide 27 mmol/L (23-31); Chloride 106 mmol/L (98-107); Estimated GFR-MDRD Greater than 90; Glucose 127 mg/dL (80-115); Magnesium 1.7 mg/dL (1.6-2.6); Potassium 3.6 mmol/L (3.5-5.1); Sodium 139 mmol/L (136-145)
[2018-03-18] MEDS ORDERED: Furosemide 40 MG/4 ML VIAL SLOW IVP SCH (09:00)
[2018-03-18] MEDS: Losartan 25 MG TAB PO SCH (09:28)
[2018-03-18] MEDS: Famotidine 20 MG TAB PO SCH ×2 (09:28→22:09)
[2018-03-18] MEDS: Insulin Regular 300 UNITS/3 ML VIAL SC PRN ×3 (09:28→22:14)
[2018-03-18] MEDS: Aspirin 325 mg Enteric Coated Tablet PO SCH (09:29)
[2018-03-18] MEDS: Anastrozole 1 MG TAB PO SCH (09:29)
[2018-03-18] MEDS: Metoprolol Tartrate 25 MG TAB PO SCH ×2 (09:29→22:10)
[2018-03-18] MEDS ORDERED: Docusate 100 MG CAP PO PRN (11:00)
--- NOTE | 2018-03-18 11:00 | PDOC.CTH ---
Cardiology Progress Note - Subjective Doing well. C/O chest soreness and a little constipation. - Objective Vital Signs Temp Pulse Resp BP Pulse Ox 03/18/18 08:00 99.1 F 95 18 165/76 H 95 03/18/18 04:00 98.0 F 90 18 119/56 L 95 Admit Weight 188 lb Weight 194 lb 8 oz 03/17/18 03/18/18 03/19/18 06:59 06:59 06:59 Intake Total 820 599 Output Total 945 950 Balance -125 -351 - Physical Examination General/Neuro: alert & oriented x3, NAD Neck: no JVD present Lungs: unlabored respirations, other: (reduced breath sounds at bases.) Heart: RRR Abdomen: NT/ND Extremities: + edema B (1+) - Telemetry Telemetry Rhythm: NSR, afib - Labs Result Diagrams: 03/17/18 10:40 03/18/18 06:41 - Assessment/Plan 1. S/P CABG 2. CAD. 3. Post op afib, now in sinus. PLAN: - Amio IV drip now as she went back into rapid afib yesterday afternoon for about 2 hours only and converted back - Aspirin and statin for life. - On BB, will start low dose ARB. - Increase PT as tolerated. - Continue IV lasix. - If she recurs on her afib will consider full anticoagulation for stroke prophylaxis for at least one or two months after surgery.
[2018-03-18] MEDS ORDERED: Potassium Chloride 20 MEQ TAB PO SCH (14:30)
[2018-03-18] MEDS ORDERED: Magnesium 2 GM/NS 0.9% 100 ML 2 GM in Premix Bag 1 BAG IVPB SCH (14:30)
--- NOTE | 2018-03-18 16:14 | PRG ---
DATE OF SERVICE: 03/18/2018 SERVICE: Pulmonary Medicine. INTERVAL HISTORY: The patient is doing fantastic from a respiratory standpoint. She denies any current chest pain, nausea, vomiting, fevers or chills. Whenever she takes deep breath or coughs, she does have a little bit of pleuritic chest discomfort, but it is short lived. She has been up walking with physical therapy today. When she got back, she checked her oxygen saturation, she was 98%. She is on room air at this point, and having any difficulties with her breathing. PHYSICAL EXAMINATION: VITAL SIGNS: Afebrile, pulse 81, respirations 15, saturation 98% on room air. GENERAL: The patient is awake, alert, no apparent distress. LUNGS: Good air entry with no prolonged expiratory phase, wheezing, rhonchi, or crackles present. HEART: Normal rate, regular. ABDOMEN: Soft, nontender, and nondistended. Bowel sounds are positive. MUSCULOSKELETAL: No cyanosis or clubbing. There is 1+ pitting in the bilateral lower extremities. NEUROLOGIC: Grossly nonfocal. LABORATORY DATA: Basic metabolic profile is completely unremarkable. Magnesium 1.7. ASSESSMENT: 1. Acute hypoxic respiratory failure, resolved. 2. Coronary artery disease, status post coronary artery bypass graft, postoperative day #5. 3. Morbid obesity. 4. Atelectasis of the bilateral lower lobes, resolving. 5. Atrial fibrillation with rapid ventricular response, currently rate controlled. PLAN: The patient is doing fantastic from a respiratory standpoint. At this point, she has no further requirements for inpatient Pulmonary or Critical Care opinion. She will need a repeat chest x-ray in the outpatient setting in 4-6 weeks to verify the infiltrates have gone away. If they have not, additional procedures may be warranted. Please call with any increasing respiratory problems moving forward. We will replace her potassium and magnesium today and recheck levels tomorrow morning. She will need to be diuresed although euvolemia which is being driven by Cardiology, currently. EYAD
[2018-03-18] MEDS: Atorvastatin Calcium 40 MG TAB PO SCH (22:09)
[2018-03-18] MEDS: Amiodarone 200 MG TAB PO SCH (22:09)
[2018-03-19] MEDS: HYDROcodone/Acetaminophen 5/325 mg Tablet PO PRN ×2 (02:17→06:51)
[2018-03-19 06:06] LABS: Anion Gap 10 mmol/L (10-20); BUN (Urea Nitrogen) 11 mg/dL (9.8-20.1); Calc. Creatinine Clearance 114 mL/min (70-130); Calcium 8.9 mg/dL (7.8-10.44); Carbon Dioxide 28 mmol/L (23-31); Chloride 104 mmol/L (98-107); Estimated GFR-MDRD 86; Glucose 141 mg/dL (80-115); Magnesium 1.9 mg/dL (1.6-2.6); Sodium 138 mmol/L (136-145)
[2018-03-19] MEDS: Anastrozole 1 MG TAB PO SCH (10:10)
[2018-03-19] MEDS: Losartan 25 MG TAB PO SCH (10:10)
[2018-03-19] MEDS: Metoprolol Tartrate 25 MG TAB PO SCH ×2 (10:10→22:09)
[2018-03-19] MEDS: Famotidine 20 MG TAB PO SCH ×2 (10:11→22:09)
[2018-03-19] MEDS: Amiodarone 200 MG TAB PO SCH ×2 (10:11→22:08)
[2018-03-19] MEDS: Aspirin 325 mg Enteric Coated Tablet PO SCH (10:12)
[2018-03-19] MEDS: Furosemide 40 MG/4 ML VIAL SLOW IVP SCH (10:12)
[2018-03-19 12:47] VITALS: BMI 32.1
--- NOTE | 2018-03-19 16:55 | PDOC.CTH ---
Cardiology Progress Note - Subjective She continues to feel soreness and be a little constipated but has been able to pass stool. Has not recurred afib since switching back to PO amio last night. - Objective Vital Signs Temp Pulse Pulse Pulse Resp BP BP 03/19/18 14:45 88 97 174/79 H 172/81 H 03/19/18 14:20 98.5 F 91 20 03/19/18 10:25 87 89 169/79 H 177/81 H 03/19/18 07:55 99.1 F 87 20 03/19/18 07:51 BP BP Pulse Ox Pulse Ox Pulse Ox 03/19/18 14:45 95 94 L 03/19/18 14:20 135/66 93 L 03/19/18 10:25 93 L 95 03/19/18 07:55 163/79 H 93 L 03/19/18 07:51 96 Admit Weight 188 lb Weight 193 lb 03/18/18 03/19/18 03/20/18 06:59 06:59 06:59 Intake Total 599 1020.4 Output Total 950 3700 Balance -351 -2679.6 - Physical Examination General/Neuro: alert & oriented x3, NAD Neck: no JVD present Lungs: CTA, unlabored respirations Heart: RRR Abdomen: NT/ND Extremities: + edema B (1+) - Telemetry Telemetry Rhythm: NSR - Labs Result Diagrams: 03/17/18 10:40 03/19/18 05:42 - Assessment/Plan 1. S/P CABG 2. CAD. 3. Post op afib, now in sinus. PLAN: - Amio PO for one month. - Aspirin and statin for life. - On BB, low dose ARB. - Increase PT as tolerated. - Continue IV lasix. - If she recurs on her afib will consider full anticoagulation for stroke prophylaxis for at least one or two months after surgery.
[2018-03-19] MEDS: Atorvastatin Calcium 40 MG TAB PO SCH (22:09)
[2018-03-19] MEDS: Insulin Regular 300 UNITS/3 ML VIAL SC PRN (22:10)
[2018-03-19] MEDS: Acetaminophen 325 MG TAB PO PRN (22:10)
[2018-03-20] MEDS: Acetaminophen 325 MG TAB PO PRN ×3 (03:15→14:38)
[2018-03-20 08:01] LABS: Anion Gap 10 mmol/L (10-20); BUN (Urea Nitrogen) 11 mg/dL (9.8-20.1); Calc. Creatinine Clearance 112 mL/min (70-130); Calcium 9.2 mg/dL (7.8-10.44); Carbon Dioxide 29 mmol/L (23-31); Chloride 104 mmol/L (98-107); Estimated GFR-MDRD 84; Glucose 129 mg/dL (80-115); Magnesium 1.9 mg/dL (1.6-2.6); Potassium 3.9 mmol/L (3.5-5.1); Sodium 139 mmol/L (136-145)
[2018-03-20] MEDS: Losartan 25 MG TAB PO SCH (08:45)
[2018-03-20] MEDS: Famotidine 20 MG TAB PO SCH ×2 (08:45→20:42)
[2018-03-20] MEDS: Anastrozole 1 MG TAB PO SCH (08:46)
[2018-03-20] MEDS: Furosemide 40 MG/4 ML VIAL SLOW IVP SCH (08:46)
[2018-03-20] MEDS: Metoprolol Tartrate 25 MG TAB PO SCH ×2 (08:46→20:42)
[2018-03-20] MEDS: Aspirin 325 mg Enteric Coated Tablet PO SCH (08:46)
[2018-03-20] MEDS: Amiodarone 200 MG TAB PO SCH ×2 (08:46→20:41)
[2018-03-20 16:15] VITALS: TEMP 98.8
[2018-03-20] MEDS ORDERED: Losartan 25 MG TAB PO SCH (18:32)
--- NOTE | 2018-03-20 19:07 | PDOC.CTH ---
Cardiology Progress Note - Subjective She is doing better. She had a good BM earlier today. She has been walking without issues. - Objective Vital Signs Temp Pulse Pulse Pulse Resp BP BP 03/20/18 16:11 98.8 F 93 18 03/20/18 13:30 88 85 132/61 117/59 L 03/20/18 11:13 98.4 F 81 16 03/20/18 08:53 92 88 171/78 H 140/82 03/20/18 07:15 98.4 F 88 16 BP Pulse Ox Pulse Ox Pulse Ox 03/20/18 16:11 163/86 H 96 03/20/18 13:30 97 95 03/20/18 11:13 126/72 95 03/20/18 08:53 95 95 03/20/18 07:15 174/88 H 94 L Admit Weight 188 lb Weight 193 lb 03/19/18 03/20/18 03/21/18 06:59 06:59 06:59 Intake Total 1020.4 Output Total 3700 Balance -2679.6 - Physical Examination General/Neuro: alert & oriented x3, NAD Neck: no JVD present Lungs: CTA, unlabored respirations Heart: RRR Abdomen: NT/ND Extremities: + edema B (1+) - Telemetry Telemetry Rhythm: NSR - Labs Result Diagrams: 03/17/18 10:40 03/20/18 07:33 - Assessment/Plan 1. S/P CABG 2. CAD. 3. Post op afib, now in sinus. PLAN: - Amio PO load at 400 mg BID for 7 days then 200 mg daily maintenance for a total of one month. - Aspirin and statin for life. - Continue metoprolol at current dose. - Will increase Losartan to 25 mg daily - Increase PT as tolerated. - Continue lasix, will switch to PO for the next 10 days and then only as needed for swelling. - May discharge any time from cardiac perspective. - Follow up in 1 month.
[2018-03-20 20:36] VITALS: BP 162/83
[2018-03-20] MEDS: Atorvastatin Calcium 40 MG TAB PO SCH (20:42)
--- NOTE | 2018-03-21 15:27 | DIS ---
DATE OF ADMISSION: 03/13/2018 DATE OF DISCHARGE: 03/20/2018 PRIMARY DIAGNOSIS: Coronary artery disease. SECONDARY DIAGNOSES: Diabetes and history of breast cancer. ADDITIONAL SECONDARY DIAGNOSIS: Atrial fibrillation. PROCEDURES PERFORMED: Coronary artery bypass grafting x3 with left internal mammary artery to the LA D, reverse greater saphenous vein graft from aorta to the OM1 and from the aorta to the circumflex PD A. HISTORY OF PRESENT ILLNESS AND HOSPITAL COURSE: The patient is a 62-year-old diabetic woman with kno wn coronary disease, having previously undergone LAD stenting. She recently redeveloped angina and w as found to have a subtotal stenosis of her LAD and modest disease in her circumflex system affecting an OM1 and Her PDA. She was admitted for surgical revascularization and did very well with the only real issue of note the development of atrial fibrillation and initially came under control and conve rted back to sinus with Cardizem, Lopressor and oral amiodarone, but it recurred requiring IV amiodar one. She was discharged home on postoperative day #7 doing well in a sinus rhythm. She is on Lopres sor 25 mg b.i.d., amiodarone 400 mg b.i.d. for a week and then 200 mg a day, losartan 25 mg a day, La six 40 mg a day for 10 days and baby aspirin a day. She is to resume a normal diabetic regimen. I w ill plan on seeing her in the office in around a week. Follow up with Dr. Abreu will be per him.
--- NOTE | 2018-03-24 13:07 | EKG ---
Test Reason : POST CSBG Blood Pressure : / mmHG Vent. Rate : 085 BPM Atrial Rate : 085 BPM P-R Int : 136 ms QRS Dur : 084 ms QT Int : 384 ms P-R-T Axes : 015 039 199 degrees QTc Int : 456 ms Normal sinus rhythm Abnormal ECG When compared with ECG of 24-FEB-2018 10:30, Nonspecific T wave abnormality now evident in Inferior leads T wave inversion now evident in Anterior leads QT has lengthened Confirmed by DR. Marisa JACKSON ([id number]) on 03/24/2018 1:07:05 PM Referred By: MELY Confirmed By:DR. Marisa JACKSON
[2018-03-24 14:25] LABS: Actual Bicarbonate (HCO3a) 22.8 mEq/L (22-26); Base Excess (BEa) -1.4 mEq/L (0 (+/-) 2.5); CO2 Tension 36.6 mmHg (35.0-45.0); O2 Tension (PaO2) 284.4 mmHg (80.0-100.0); pH, Arterial 7.41 (7.35-7.45)
[2018-03-24 14:26] LABS: Analyzer IN Cardio OR; Calcium, Ionized 1.2 mmol/L (1.12-1.30); Hematocrit-ABG 35.4 % (36.0-47.0); Hemoglobin (Hb) 12.4 g/dL (12.0-16.0); Puncture Site ALINE
[2018-03-24 14:26] LABS: Actual Bicarbonate (HCO3a) 23.4 mEq/L (22-26); CO2 Tension 47.3 mmHg (35.0-45.0); pH, Arterial 7.31 (7.35-7.45)
[2018-03-24 14:27] LABS: Analyzer IN Cardio OR; Base Excess (BEa) -2.8 mEq/L (0 (+/-) 2.5); Hematocrit-ABG 23.5 % (36.0-47.0); Hemoglobin (Hb) 8.4 g/dL (12.0-16.0); Puncture Site ALINE
[2018-03-24 14:27] LABS: Analyzer IN Cardio OR
[2018-03-24 14:28] LABS: Actual Bicarbonate (HCO3v) 24 mEq/L (22-26); Base Excess -2.4 mEq/L (0 (+/- 2.5)); Calcium, Ionized 1.02 mmol/L (1.16-1.32); Chloride (ABG LAB) 105 mmol/L (98-106); Hematocrit-VBG 23.4 % (35-47); Hemoglobin (Hb) 8.5 g/dL (11.7-16.0); Potassium - ABG Lab 5.9 mmol/L (3.70-5.30); Sodium 137.8 mmol/L (133-146); pH (venous) 7.28 (7.35-7.45)
[2018-03-24 14:29] LABS: Actual Bicarbonate (HCO3a) 22.8 mEq/L (22-26); Analyzer IN Cardio OR; CO2 Tension 50.3 mmHg (35.0-45.0); Hemoglobin (Hb) 8.3 g/dL (12.0-16.0); Puncture Site ALINE; pH, Arterial 7.27 (7.35-7.45)
[2018-03-24 14:30] LABS: Actual Bicarbonate (HCO3a) 20.9 mEq/L (22-26); Analyzer IN Cardio OR; Base Excess (BEa) -4.7 mEq/L (0 (+/-) 2.5); Calcium, Ionized 1.3 mmol/L (1.12-1.30); Hematocrit-ABG 22.3 % (36.0-47.0); Hemoglobin (Hb) 8.4 g/dL (12.0-16.0); O2 Tension (PaO2) 367.3 mmHg (80.0-100.0); Puncture Site ALINE; pH, Arterial 7.33 (7.35-7.45)
[2018-03-24 14:31] LABS: Actual Bicarbonate (HCO3a) 22.8 mEq/L (22-26); Analyzer IN Cardio OR; Base Excess (BEa) -2.7 mEq/L (0 (+/-) 2.5); CO2 Tension 42.6 mmHg (35.0-45.0); Calcium, Ionized 1.2 mmol/L (1.12-1.30); Hematocrit-ABG 27.8 % (36.0-47.0); Hemoglobin (Hb) 10.5 g/dL (12.0-16.0); O2 Tension (PaO2) 331.2 mmHg (80.0-100.0); Puncture Site ALINE; pH, Arterial 7.35 (7.35-7.45)
== END 2018-03-20 21:55 | disposition home or self-care (01) | DRG 235 ==
LOC: SURG A 03-13 05:54 → CCU 03-13 13:54 → 2NO 03-14 09:57
PROVIDERS: ADMIT Thoracic Surgery (Cardiothoracic Vascular Surgery); ATTEND Thoracic Surgery (Cardiothoracic Vascular Surgery)
PROC: 02100Z9 Bypass Coronary Artery, One Artery from Left Internal Mammary, Open Approach (ICD-10-PCS; principal; 2018-03-13)
PROC: 021109W Bypass Coronary Artery, Two Arteries from Aorta with Autologous Venous Tissue, Open Approach (ICD-10-PCS; 2018-03-13)
PROC: 06BQ0ZZ Excision of Left Saphenous Vein, Open Approach (ICD-10-PCS; 2018-03-13)
PROC: 06BP0ZZ Excision of Right Saphenous Vein, Open Approach (ICD-10-PCS; 2018-03-13)
PROC: 5A1221Z Performance of Cardiac Output, Continuous (ICD-10-PCS; 2018-03-13)
DX: I25.10 Atherosclerotic heart disease of native coronary artery without angina pectoris (principal); J96.01 Acute respiratory failure with hypoxia; J98.11 Atelectasis; E66.01 Morbid (severe) obesity due to excess calories; D69.59 Other secondary thrombocytopenia; Z68.32 Body mass index [BMI] 32.0-32.9, adult; I48.0 Paroxysmal atrial fibrillation; I10 Essential (primary) hypertension; E11.9 Type 2 diabetes mellitus without complications; E78.5 Hyperlipidemia, unspecified; Z92.3 Personal history of irradiation; Z85.3 Personal history of malignant neoplasm of breast; Z79.84 Long term (current) use of oral hypoglycemic drugs; Z79.82 Long term (current) use of aspirin; Z79.899 Other long term (current) drug therapy; I25.2 Old myocardial infarction; Z90.12 Acquired absence of left breast and nipple; K22.2 Esophageal obstruction
CPT/HCPCS: 36415; 36416; 71045; 80048; 80076; 82805; 83735; 84443; 85025; 85610; 85730; 93005; 93010; 93798; 94002; 94150; A4216; J0282; J1642; J1644; J1815; J1885; J1940; J2001; J2150; J2250; J2405; J2440; J2704; J2720; J3010; J3475; J3480; J7050; J7070; P9045; S0017; S0028

== ENCOUNTER 2018-03-06 16:02 | Outpatient (CLI) | payer BC, MEDICARE ==
--- NOTE | 2018-03-06 17:08 | RAD ---
RADIOGRAPH CHEST 2 VIEWS: 03/06/18 HISTORY: 62-year-old female for preoperative clearance. FINDINGS: There is no air space density, pulmonary edema, pleural effusion, pneumothorax, or cardiomegaly. IMPRESSION: No acute cardiopulmonary findings. nancy [] POS: [facility]
[2018-03-06 17:13] LABS: Hemoglobin 13.9 g/dL (12.0-16.0); Mean Corpuscular HGB CONC 33.6 g/dL (32.0-36.0); Mean Corpuscular Hemoglobin 28.3 pg (27.0-31.0); Mean Corpuscular Volume 84.1 fl (81.0-99.0); Mean Platelet Volume 7.3 fL (7.4-10.4); Platelet Count 203 thou/uL (130-400); RBC Distribution Width 12.6 % (11.5-14.5); Red Blood Cell (RBC) Count 4.92 mill/uL (4.20-5.40); White Blood Cell (WBC) Count 7.6 thou/uL (4.8-10.8)
[2018-03-06 17:35] LABS: Anion Gap 14 mmol/L (10-20); BUN (Urea Nitrogen) 13 mg/dL (9.8-20.1); Calc. Creatinine Clearance 0 mL/min (70-130); Carbon Dioxide 25 mmol/L (23-31); Chloride 104 mmol/L (98-107); Estimated GFR-MDRD 74; Glucose 104 mg/dL (80-115); Potassium 4.1 mmol/L (3.5-5.1); Sodium 139 mmol/L (136-145)
== END 2018-03-06 16:03 | disposition home or self-care (01) ==
LOC: LABBT 16:02
PROVIDERS: ATTEND Thoracic Surgery (Cardiothoracic Vascular Surgery)
DX: Z01.818 Encounter for other preprocedural examination (principal); I25.10 Atherosclerotic heart disease of native coronary artery without angina pectoris
CPT/HCPCS: 71046; 80048; 85027; 86850; 86900; 86901

== ENCOUNTER 2018-05-20 10:42 | Emergency (ER) | payer BC, MEDICARE ==
--- NOTE | 2018-05-20 11:31 | RAD ---
FRONTAL VIEW CHEST: Comparison: 03-16-18 Indication: Chest pain. FINDINGS: There are linear densities of the lower lung zones bilaterally favoring subsegmental atelectasis. The cardiac silhouette is prominent with evidence of prior sternotomy. There is vascular congestion. Oss eous degenerative changes are present. IMPRESSION: Bibasilar linear densities favoring areas of subsegmental atelectasis. POS: [facility]
[2018-05-20 11:41] LABS: #Eosinphils 0.2 thou/uL (0.0-0.7); #Lymphocytes 2.2 thou/uL (1.20-3.40); #Monocytes 0.4 thou/uL (0.11-0.59); #Neutrophils 4.1 thou/uL (1.40-6.50); %Basophils 0.2 % (0.0-1.0); %Eosinophils 3.4 % (0.0-10.0); %Lymphocytes 31.8 % (21.0-51.0); %Neutrophils 58.7 % (42.0-75.0); Hemoglobin 13.7 g/dL (12.0-16.0); Mean Corpuscular HGB CONC 32.6 g/dL (32.0-36.0); Mean Corpuscular Hemoglobin 26.6 pg (27.0-31.0); Mean Corpuscular Volume 81.7 fL (78.0-98.0); Mean Platelet Volume 7.1 fL (7.4-10.4); Platelet Count 192 thou/uL (130-400); RBC Distribution Width 14.3 % (11.5-14.5); Red Blood Cell (RBC) Count 5.15 mill/uL (4.20-5.40)
[2018-05-20] MEDS ORDERED: Lorazepam 2 MG/ML VIAL ONE (12:08)
[2018-05-20 12:09] LABS: ALT (SGPT) 19 U/L (8-55); AST (SGOT) 14 U/L (5-34); Albumin 4.6 g/dL (3.4-4.8); Alkaline Phosphatase 82 U/L (40-150); Anion Gap 11 mmol/L (10-20); BUN (Urea Nitrogen) 10 mg/dL (9.8-20.1); Bilirubin, Total 0.7 mg/dL (0.2-1.2); Calc. Creatinine Clearance 0 mL/min (70-130); Calcium 9.8 mg/dL (7.8-10.44); Carbon Dioxide 25 mmol/L (23-31); Chloride 109 mmol/L (98-107); Estimated GFR-MDRD 73; Globulin 2.9 g/dL (2.4-3.5); Glucose 122 mg/dL (80-115); Potassium 4.1 mmol/L (3.5-5.1); Protein, Total 7.5 g/dL (6.0-8.3); Sodium 141 mmol/L (136-145)
[2018-05-20] MEDS ORDERED: Nitroglycerin 2% Ointment 1 INCH/1 GM Packet ONE (12:09)
[2018-05-20 12:14] LABS: CKMB 1.3 ng/mL (0-6.6); Troponin I Less than 0.010 ng/mL (< 0.028)
== END 2018-05-20 14:06 | disposition home or self-care (01) ==
LOC: ERS 10:42
DX: I10 Essential (primary) hypertension (principal); F41.9 Anxiety disorder, unspecified; E87.70 Fluid overload, unspecified; I25.10 Atherosclerotic heart disease of native coronary artery without angina pectoris; E11.9 Type 2 diabetes mellitus without complications; Z79.82 Long term (current) use of aspirin; Z79.899 Other long term (current) drug therapy
CPT/HCPCS: 71045; 80053; 82553; 84484; 85025; 93005; 96374; J2060

== ENCOUNTER 2021-02-21 07:50 | Emergency (ER) | payer BC, MEDICARE ==
[2021-02-21 08:34] LABS: #Lymphocytes 0.8 thou/uL (1.20-3.40); #Monocytes 0.3 thou/uL (0.11-0.59); #Neutrophils 3.5 thou/uL (1.40-6.50); %Eosinophils 0.4 % (0.0-10.0); %Lymphocytes 16.9 % (21.0-51.0); %Monocytes 5.7 % (0.0-10.0); Hemoglobin 13.9 g/dL (12.0-16.0); Mean Corpuscular HGB CONC 32.6 g/dL (32.0-36.0); Mean Corpuscular Hemoglobin 27.2 pg (27.0-31.0); Mean Corpuscular Volume 83.5 fL (78.0-98.0); Mean Platelet Volume 6.9 fL (7.4-10.4); Platelet Count 202 thou/uL (130-400); RBC Distribution Width 12.1 % (11.5-14.5); Red Blood Cell (RBC) Count 5.09 mill/uL (4.20-5.40); White Blood Cell (WBC) Count 4.5 thou/uL (4.8-10.8)
[2021-02-21] MEDS ORDERED: Lidocaine Viscous Sol 2% 15 ml UD Cup ONE ×2 (08:54→08:55)
[2021-02-21] MEDS ORDERED: Mag-Al 1200 mg/1200 mg/30 ML UDCUP ONE (08:56)
[2021-02-21 08:59] LABS: ALT (SGPT) 19 U/L (8-55); AST (SGOT) 17 U/L (5-34); Albumin 3.9 g/dL (3.4-4.8); Alkaline Phosphatase 66 U/L (40-110); Anion Gap 16 mmol/L (10-20); BUN (Urea Nitrogen) 9 mg/dL (9.8-20.1); Bilirubin, Total 0.7 mg/dL (0.2-1.2); Calc. Creatinine Clearance 0 mL/min (70-130); Calcium 8.9 mg/dL (7.8-10.44); Carbon Dioxide 22 mmol/L (23-31); Chloride 106 mmol/L (98-107); Globulin 2.6 g/dL (2.4-3.5); Glucose 122 mg/dL (80-115); Lipase 45 U/L (8-78); Potassium 3.8 mmol/L (3.5-5.1); Protein, Total 6.5 g/dL (5.8-8.1); Sodium 140 mmol/L (136-145)
[2021-02-21 09:25] LABS: Bilirubin Negative (Negative); Blood, Urine Negative (Negative); Glucose, Urine (Dipstick) Negative (Negative); Ketone, Urine 40 mg/dL (Negative); Leukocyte Negative (Negative); Nitrite Negative (Negative); Protein, Urine (Dipstick) Negative (Neg-Trace); Urobilinogen 0.2 mg/dL (Less than 2)
[2021-02-21 09:29] LABS: Clarity Clear (Clear); Specific Gravity, Urine 1.005 (1.002-1.036)
[2021-02-21 09:32] LABS: Bacteria/HPF None Seen HPF (None Seen); RBC/HPF 0-3 HPF (0-3); WBC/HPF None Seen HPF (0-3)
[2021-02-21 13:47] LABS: SARS-CoV-2 PCR by NAA DETECTED (NotDetected)
== END 2021-02-21 10:24 | disposition home or self-care (01) ==
LOC: ERS 07:50
DX: U07.1 COVID-19 (principal); E11.9 Type 2 diabetes mellitus without complications; I25.10 Atherosclerotic heart disease of native coronary artery without angina pectoris; Z79.82 Long term (current) use of aspirin; Z79.899 Other long term (current) drug therapy
CPT/HCPCS: 36415; 71045; 80053; 81003; 83690; 84484; 85025; 87635; 93005; U0003; U0005

== ENCOUNTER 2023-12-04 19:17 | Inpatient (IN) | payer MEDICARE, BC ==
[2023-12-04 19:47] LABS: #Eosinphils 0.4 thou/uL (0.0-0.7); #Monocytes 0.5 thou/uL (0.11-0.59); #Neutrophils 2.5 thou/uL (1.40-6.50); %Basophils 0.5 % (0.0-1.0); %Eosinophils 6.4 % (0.0-10.0); %Lymphocytes 44.4 % (21.0-51.0); %Monocytes 7.4 % (0.0-10.0); %Neutrophils 41.1 % (42.0-75.0); Hematocrit 42.2 % (36.0-47.0); Hemoglobin 14.2 g/dL (12.0-16.0); Mean Corpuscular HGB CONC 33.6 g/dL (32.0-36.0); Mean Corpuscular Hemoglobin 28.2 pg (27.0-31.0); Mean Corpuscular Volume 83.7 fl (78.0-98.0); Mean Platelet Volume 9.5 fL (7.4-10.4); Platelet Count 170 10x3/uL (130-400); RBC Distribution Width 13.5 % (11.5-14.5); Red Blood Cell (RBC) Count 5.04 mill/uL (4.20-5.40); White Blood Cell (WBC) Count 6.1 10x3/uL (4.8-10.8)
[2023-12-04 20:13] LABS: ALT (SGPT) 22 U/L (8-55); AST (SGOT) 14 U/L (5-34); Albumin 4.2 g/dL (3.4-4.8); Alkaline Phosphatase 72 U/L (40-110); Anion Gap 13 mmol/L (10-20); BUN (Urea Nitrogen) 12 mg/dL (9.8-20.1); Bilirubin, Total 0.5 mg/dL (0.2-1.2); Calc. Creatinine Clearance 0 mL/min (70-130); Calcium 9.5 mg/dL (7.8-10.44); Carbon Dioxide 22 mmol/L (23-31); Chloride 109 mmol/L (98-107); Estimated GFR 70; Globulin 2.7 g/dL (2.4-3.5); Glucose 133 mg/dL (80-115); Lipase 50 U/L (8-78); Potassium 3.8 mmol/L (3.5-5.1); Protein, Total 6.9 g/dL (5.8-8.1); Sodium 140 mmol/L (136-145)
[2023-12-04 20:17] LABS: Troponin I 0.012 ng/mL (< 0.028)
[2023-12-04] MEDS ORDERED: Dextrose 5% in Water 1,000 ML IV PRN (22:00)
[2023-12-04] MEDS ORDERED: HumaLOG 300 UNITS/3 ML VIAL SC PRN (22:00)
[2023-12-04] MEDS ORDERED: Ondansetron ODT 4 MG TAB PO PRN (22:00)
[2023-12-04] MEDS ORDERED: Acetaminophen 325 MG TAB PO PRN (22:00)
[2023-12-04] MEDS ORDERED: Glucagon 1 MG/ML KIT IM PRN (22:00)
[2023-12-04] MEDS ORDERED: Dextrose 50% Abboject 50 ML SYRINGE SLOW IVP PRN (22:00)
[2023-12-04] MEDS ORDERED: Ondansetron PF 4 MG/2 ML Vial IVP PRN (22:00)
[2023-12-04] MEDS ORDERED: Electrolyte Replacement Protocol 1 EACH FS SCH (22:00)
[2023-12-04 23:32] VITALS: BMI 31.9
[2023-12-05 06:17] LABS: #Eosinphils 0.3 thou/uL (0.0-0.7); #Monocytes 0.4 thou/uL (0.11-0.59); #Neutrophils 2.3 thou/uL (1.40-6.50); %Basophils 0.6 % (0.0-1.0); %Eosinophils 6.3 % (0.0-10.0); %Lymphocytes 39.5 % (21.0-51.0); %Monocytes 8.3 % (0.0-10.0); %Neutrophils 45.1 % (42.0-75.0); Hematocrit 38.8 % (36.0-47.0); Hemoglobin 12.8 g/dL (12.0-16.0); Mean Corpuscular Hemoglobin 28.1 pg (27.0-31.0); Mean Corpuscular Volume 85.3 fl (78.0-98.0); Platelet Count 164 10x3/uL (130-400); RBC Distribution Width 13.5 % (11.5-14.5); Red Blood Cell (RBC) Count 4.55 mill/uL (4.20-5.40); White Blood Cell (WBC) Count 5.1 10x3/uL (4.8-10.8)
[2023-12-05 06:40] LABS: Anion Gap 13 mmol/L (10-20); BUN (Urea Nitrogen) 16 mg/dL (9.8-20.1); Calc. Creatinine Clearance 81 mL/min (70-130); Calcium 8.6 mg/dL (7.8-10.44); Carbon Dioxide 24 mmol/L (23-31); Chloride 109 mmol/L (98-107); Estimated GFR 75; Glucose 171 mg/dL (80-115); Magnesium 1.8 mg/dL (1.6-2.6); Potassium 3.8 mmol/L (3.5-5.1); Sodium 142 mmol/L (136-145)
[2023-12-05] MEDS: HumaLOG 300 UNITS/3 ML VIAL SC PRN ×2 (06:53→13:51)
[2023-12-05] MEDS ORDERED: Magnesium 2 GM/50 ML(in water) 2 GM in Premix 1 BAG IVPB SCH (08:00)
[2023-12-05] MEDS: Aspirin 81 mg Enteric Coated Tablet PO SCH (08:35)
[2023-12-05] MEDS: Enoxaparin 40 MG (0.4 mL) SYRINGE SC SCH (08:35)
[2023-12-05] MEDS ORDERED: Atorvastatin Calcium 20 MG TAB PO SCH (21:00)
[2023-12-05] MEDS: Metoprolol Tartrate 25 MG TAB PO SCH (21:44)
[2023-12-06] MEDS ORDERED: glipiZIDE 5 MG TAB PO SCH ×2 (08:15→16:30)
[2023-12-06] MEDS: Aspirin 81 mg Enteric Coated Tablet PO SCH (08:54)
[2023-12-06] MEDS: Enoxaparin 40 MG (0.4 mL) SYRINGE SC SCH (08:55)
[2023-12-06] MEDS ORDERED: Losartan 25 MG TAB PO SCH (09:00)
[2023-12-06] MEDS: Metoprolol Tartrate 25 MG TAB PO SCH (09:18)
[2023-12-06 11:25] VITALS: BP 183/81; TEMP 98.8
== END 2023-12-06 15:50 | disposition home or self-care (01) | DRG 309 ==
LOC: ERS 19:17 → 2SW 21:16 → OBSVTOIN 12-05 18:28
PROVIDERS: ADMIT Student in an Organized Health Care Education/Training Program; ATTEND Internal Medicine
DX: I49.3 Ventricular premature depolarization (principal); I47.29 Other ventricular tachycardia; I10 Essential (primary) hypertension; E78.5 Hyperlipidemia, unspecified; I25.10 Atherosclerotic heart disease of native coronary artery without angina pectoris; E11.9 Type 2 diabetes mellitus without complications; K21.9 Gastro-esophageal reflux disease without esophagitis; K44.9 Diaphragmatic hernia without obstruction or gangrene; M54.50 Low back pain, unspecified; G89.29 Other chronic pain; E83.42 Hypomagnesemia; E66.9 Obesity, unspecified; Z79.84 Long term (current) use of oral hypoglycemic drugs; Z79.82 Long term (current) use of aspirin; Z79.899 Other long term (current) drug therapy; Z85.3 Personal history of malignant neoplasm of breast; Z92.3 Personal history of irradiation; Z85.51 Personal history of malignant neoplasm of bladder; Z90.710 Acquired absence of both cervix and uterus; Z98.890 Other specified postprocedural states; Z95.1 Presence of aortocoronary bypass graft; Z82.49 Family history of ischemic heart disease and other diseases of the circulatory system; Z80.3 Family history of malignant neoplasm of breast; Z68.31 Body mass index [BMI] 31.0-31.9, adult
CPT/HCPCS: 36415; 36416; 71045; 80048; 80053; 83690; 83735; 84484; 85025; 93005; 93010; 93306; 96372; 96374; G0378; J1650; J1815; J3475

== ENCOUNTER 2024-11-04 21:03 | Emergency (ER) | payer MEDICARE, BC | END 2024-11-04 23:08 | disposition home or self-care (01) | LOC: ERS 21:03 | DX: S91.202A Unspecified open wound of left great toe with damage to nail, initial encounter (principal); E11.9 Type 2 diabetes mellitus without complications; I25.10 Atherosclerotic heart disease of native coronary artery without angina pectoris; W23.1XXA Caught, crushed, jammed, or pinched between stationary objects, initial encounter; Y93.89 Activity, other specified | CPT/HCPCS: 99283 ==